=== PATIENT | female | born 1960 | race Two or more races ===

== ENCOUNTER 2016-08-06 11:14 | Emergency (ER) | payer MEDICAID ==
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
[2016-08-06] MEDS ORDERED: HYDROmorphone 1 mg/mL 1mL Syr ONE ×2 (12:15→14:22)
[2016-08-06] MEDS: HYDROmorphone 1 mg/mL 1mL Syr IVP STA ×2 (12:27→14:26)
[2016-08-06] MEDS: Sodium Chloride 0.9% 1,000 ML IV ONE (12:29)
[2016-08-06 13:19] LABS: % BASOPHILS 0.7 % (0.0-2.0); % EOSINOPHILS 3.5 % (0.0-5.0); % LYMPHOCYTES 35.7 % (20.0-50.0); % MONOCYTES 5.9 % (2.0-10.0); % NEUTROPHILS 54.2 % (40.0-80.0); HEMATOCRIT 35.5 % (35.0-45.0); HEMOGLOBIN 12.2 gm/dL (11.7-15.5); MEAN CELL VOLUME 84.9 fl (81-100); MEAN CORPUSCULAR HEMOGLOBIN 29.2 pg (27.0-31.0); MEAN CORPUSCULAR HGB CONC 34.3 pg (28.0-36.0); MEAN PLATELET VOLUME 7.3 fl; NEUTROPHILE ABSOLUTE 3.8 Th/cmm (1.8-8.0); PLATELET COUNT 322 Th/cmm (150-400); RED BLOOD COUNT 4.18 Mil/cmm (3.80-5.10); RED CELL DISTRIBUTION WIDTH 12.4 % (11.5-20.0); WHITE BLOOD COUNT 7.2 Th/cmm (4.8-10.8)
[2016-08-06 13:43] LABS: ALB/GLOB RATIO 1.4 (1.0-1.8); ALKALINE PHOSPHATASE 111 U/L (34-104); ANION GAP 8.1 (7.0-16.0); BILIRUBIN,TOTAL 0.3 mg/dL (0.3-1.0); BUN - UREA NITROGEN 10 mg/dL (7-25); BUN/CREATININE RATIO 16.7; CALCIUM SERUM 9.2 mg/dL (8.6-10.3); CHLORIDE 101 mEq/L (98-107); CREATININE - SERUM 0.6 mg/dL (0.6-1.2); GLUCOSE 90 mg/dL (70-105); POTASSIUM SERUM 3.1 mEq/L (3.5-5.1); SGOT 30 U/L (13-39); SGPT/ALT 25 U/L (7-52); SODIUM SERUM 135 mEq/L (136-145)
[2016-08-06 13:44] LABS: URINE COLOR YELLOW
[2016-08-06 13:45] LABS: URINE BILIRUBIN NEGATIVE (NEGATIVE); URINE BLOOD NEGATIVE (NEGATIVE); URINE GLUCOSE (UA) NEGATIVE (NEGATIVE); URINE KETONE NEGATIVE (NEGATIVE); URINE PROTEIN NEGATIVE (NEGATIVE); URINE UROBILINOGEN 0.2 E.U./dL (0.2 - 1.0)
[2016-08-06 13:51] LABS: URINE BACTERIA NONE SEEN /hpf (NONE SEEN); URINE EPITHELIAL CELLS FEW /lpf (FEW); URINE RBC 0-1 /hpf (0-5)
--- NOTE | 2016-08-06 14:54 | Diagnostic Imaging Report ---
CT scan abdomen and pelvis without intravenous contrast HISTORY: Pain Total DLP equals 22 CTDI equals 14.0 Axial sections were obtained from the xiphoid process down to the pubic symphysis. The liver exhibits a normal size with a homogeneous parenchyma. No focal lesions. No abnormality seen in the region of the pancreas. There is a somewhat distended debris-filled stomach. Significance should be correlated clinically. No focal abnormality seen within the pancreas. No significant focal renal lesions. No hydronephrosis. There is moderate to markedly distended stool-filled large bowel. Findings are consistent with changes of constipation. The pelvis demonstrates preservation of normal fat planes. No abnormal soft tissue masses or abnormal fluid collections. Evaluation of the lower abdomen and pelvis is limited due to artifact associated with a medication pump. Degenerative changes noted in the spine. IMPRESSION: 1. Distended stool-filled large bowel consistent with changes of constipation. 2. No other acute abnormalities
== END 2016-08-06 16:00 | disposition home or self-care (01) ==
LOC: ER 11:14
DX: K59.00 Constipation, unspecified (principal); R10.32 Left lower quadrant pain; E11.22 Type 2 diabetes mellitus with diabetic chronic kidney disease; N18.6 End stage renal disease; Z88.6 Allergy status to analgesic agent; Z88.8 Allergy status to other drugs, medicaments and biological substances
CPT/HCPCS: 99285; 96361; 96374; 96375; 96376; 74176; 36415; 83605; 85025; 81001; 80053; 87040 ×2; J2405; J1170; J1200; J7030